=== PATIENT | male | born 1995 | race Caucasian/White ===

== ENCOUNTER 2022-09-16 05:36 | Emergency (ER) | payer OTHER ==
[2022-09-16] MEDS ORDERED: NA CHLORIDE 0.9% 1,000 ML ONE ×2 (06:10→09:23)
[2022-09-16] MEDS ORDERED: ONDANSETRON 4 MG/2 ML VIAL ONE (06:10)
[2022-09-16 06:32] LABS: Absolute Lymphocytes (CBC) 1.5 K/uL (0.7-4.9); Hematocrit 46.4 % (39.6-49.0); MCV 83.7 fL (80-100); MPV 9.6 fL (7.6-11.3); RBC Red Blood Cell Count 5.55 M/uL (4.33-5.43)
[2022-09-16 06:48] LABS: ALT/SGPT 669 U/L (16-61); AST/SGOT 553 U/L (15-37); Albumin 4.1 g/dL (3.4-5.0); Alkaline Phosphatase 157 U/L (45-117); BUN Blood Urea Nitrogen 11 mg/dL (7-18); Bicarbonate 28 mEq/L (21-32); Bilirubin Total 4.9 mg/dL (0.2-1.0); Glomerular Filtration Rate 92 ml/min (=/>90); Glucose Level 120 mg/dL (74-106); Potassium 3.4 mEq/L (3.5-5.1); Protein, Total 7.8 g/dL (6.4-8.2); Sodium Level 134 mEq/L (136-145)
[2022-09-16 06:49] LABS: Lipase > 5000 U/L (13-75)
--- NOTE | 2022-09-16 07:47 | RAD REPORT ---
EXAM DESCRIPTION: CT - Abdomen Pelvis W Contrast - 09/16/2022 7:07 am CLINICAL HISTORY: Abdominal pain COMPARISON: none. TECHNIQUE: Computed axial tomography of the abdomen pelvis was obtained. 100 cc Isovue-300 was admin istered intravenously. Oral contrast was not requested which limits evaluation of bowel and appendix All CT scans are performed using dose optimization technique as appropriate and may include automated exposure control or mA/KV adjustment according to patient size. FINDINGS: Mild enlargement of the pancreas. Small to moderate amount of ill-defined fluid surroundin g the pancreas extending into the left anterior pararenal space. Mildly thickened gallbladder wall. Small gallstones The liver, spleen, adrenals and kidneys are unremarkable Normal appendix No evidence of diverticulitis IMPRESSION: Mild to moderate pancreatitis. Cholelithiasis. Mildly thickened gallbladder wall may indicate cholecystitis
--- NOTE | 2022-09-16 07:48 | RAD REPORT ---
EXAM DESCRIPTION: US - Abdomen Exam Limited - 09/16/2022 7:04 am CLINICAL HISTORY: Abdominal pain. COMPARISON: None. FINDINGS: Multiple small gallstones. Gallbladder wall mildly thickened. The biliary tree is normal caliber. IMPRESSION: Cholelithiasis Mildly thickened gallbladder wall may indicate cholecystitis
[2022-09-16] MEDS ORDERED: POTASSIUM CL IV ONE (08:00)
[2022-09-16] MEDS ORDERED: NACHLORIDE 0.45% IV ONE (08:00)
--- NOTE | 2022-09-16 09:08 | EDPHYS ---
Physician Documentation [facility] Name: Chin Joy Age: 27 yrs Sex: Male : 1995 Arrival Date: 09/16/2022 Time: 05:36 Bed 7 Private MD: ED Physician Federico Suarez HPI: 09/16 05:49 This 27 yrs old Male presents to ER via Ambulatory with complaints of sp4 Abdominal Pain, Nausea, Low Back Pain. Historical: - Allergies: 05:49 No Known Allergies; rv - PMHx: 05:49 None; rv - PSHx: 05:49 None; rv - Immunization history:: Adult Immunizations up to date. - Social history:: Smoking status: Patient reports the use of cigarette tobacco products, VAPE. ROS: 06:56 Constitutional: Negative for fever, chills, and weight loss, Abdomen/GI: Negative for sp4 diarrhea, and constipation, positive for abdominal pain, upper abdominal pain, nausea vomiting Exam: 06:12 ECG was reviewed by the Attending Physician. Normal sinus rhythm at the rate of 63, EKG sp4 time 0 553, no ST elevation or depression. 06:56 Constitutional: This is a well developed, well nourished patient who is awake, alert, sp4 and in no acute distress. Head/Face: Normocephalic, atraumatic. Eyes: Pupils equal round and reactive to light, extra-ocular motions intact. Lids and lashes normal. Conjunctiva and sclera are not injected. Cornea within normal limits. Periorbital areas with no swelling, redness, or edema. ENT: Nares patent. No nasal discharge, no septal abnormalities noted. Tympanic membranes are normal and external auditory canals are clear. Oropharynx with no redness, swelling, or masses, exudates, or evidence of obstruction, uvula midline. Mucous membranes moist. Neck: Trachea midline, no thyromegaly or masses palpated, and no cervical lymphadenopathy. Supple, full range of motion without nuchal rigidity, or vertebral point tenderness. Chest/axilla: Normal chest wall appearance and motion. Nontender with no deformity. No lesions are appreciated. Cardiovascular: Regular rate and rhythm with a normal S1 and S2. No gallops, murmurs, or rubs. Normal PMI, no JVD. No pulse deficits. Respiratory: Lungs have equal breath sounds bilaterally, clear to auscultation and percussion. No rales, rhonchi or wheezes noted. No increased work of breathing, no retractions or nasal flaring. Abdomen/GI: Soft, with normal bowel sounds. No distension or tympany. No guarding or rebound. Positive upper abdominal tenderness particularly in epigastric area, negative rigidity Back: No spinal tenderness. No costovertebral tenderness. Skin: Warm, dry with normal turgor. Normal color with no rashes, no lesions, and no evidence of cellulitis. MS/ Extremity: Pulses equal, no cyanosis. Neurovascular intact. Full, normal range of motion. Neuro: Awake and alert, GCS 15, oriented to person, place, time, and situation. Cranial nerves II-XII grossly intact. Motor strength 5/5 in all extremities. Sensory grossly intact. Psych: Awake, alert, with orientation to person, place and time. Behavior, mood, and affect are within normal limits Vital Signs: 05:46 BP 147 / 92; Pulse 70; Resp 17; Temp 97.7; Pulse Ox 100% ; Weight 136 kg; Height 6 ft. rv 4 in. ; Pain 4/10; 06:51 BP 125 / 71; Pulse 57; Resp 15; Pulse Ox 100% on R/A; rv 05:46 Body Mass Index 36.50 (136.00 kg, 193.04 cm) rv 05:46 Pain Scale: Adult rv Murray Coma Score: 06:51 Eye Response: spontaneous(4). Motor Response: obeys commands(6). Verbal Response: rv oriented(5). Total: 15. MDM: 06:04 Patient medically screened. sp4 06:54 Differential diagnosis: Nonspecific abd pain, gastritis, cholecystitis, pancreatitis, sp4 appendicitis, diverticulitis, viral gastroenteritis, gastroenteritis. Data reviewed: vital signs, nurses notes, lab test result(s), amylase and lipase, electrolytes, hepatic panel, urinalysis, EKG, radiologic studies, CT scan, ultrasound. Consideration of Admission/Observation Patient was admitted/placed on observation. Escalation of care including admission/observation considered. Management of patient was discussed with the following: Hospitalist: elevation of lipase greater than 5000 and also elevated liver enzymes with clinical picture consistent with acute pancreatitis possible gallstone pancreatitis. Patient is awaiting on CT and ultrasound report. ED course: Patient will have to be signed out to the daytime provider follow-up: Necessary reports. 06:56 ED course: Patient will require admission to the hospital we will start patient on IV sp4 fluids and order n.p.o. as well. . 08:12 ED course: Patient signed out to me by operations supervisor 2nd shift Dr. Reed Patient is a 27-year-old male sp3 with epigastric pain with elevated LFTs now with CT scan of the abdomen and pelvis as well as ultrasound pending. Patient is currently pain-free and disposition will be based on final results with possible admission.. 09:06 ED course: CT demonstrates peripancreatic fluid consistent with pancreatitis as well as sp3 mild gallbladder wall thickening which is also confirmed by ultrasound. No stone is visualized in the bile ducts however multiple small stones are demonstrated on imaging in the gallbladder. Lipase levels greater than 5000, T. bili of 4.9, and elevated LFTs. Given all of these findings, choledocholithiasis is the most likely diagnosis. We do not have GI coverage here and therefore will have to transfer patient to [facility] the [facility]. Patient remains n.p.o. and Zosyn and more IV fluids have been ordered via IV. All this has been explained to the patient who is amenable to transfer and all questions have been answered. Pain remains at low levels and patient declines any pain medication at this time.. 09/16 05:58 Order name: Urinalysis w/ reflexes; Complete Time: 09:30 4 09/16 06:34 Order name: CBC with Automated Diff; Complete Time: 06:51 EDMS 09/16 06:50 Order name: Comprehensive Metabolic Panel; Complete Time: 06:51 EDMS 09/16 06:50 Order name: Lipase; Complete Time: 06:51 EDMS 09/16 05:58 Order name: Abdomen Limited 09/16 05:58 Order name: CT Abd/Pelvis - IV Contrast Only 4 09/16 07:09 Order name: Abdomen ; Complete Time: 08:57 EDMS 09/16 07:09 Order name: Abdomen Exam Limited; Complete Time: 08:57 EDMS 09/16 05:58 Order name: IV Saline Lock; Complete Time: 05:59 sp4 09/16 05:58 Order name: Labs collected and sent; Complete Time: 06:00 sp4 09/16 05:59 Order name: EKG - Nurse/Tech; Complete Time: 05:59 pf1 09/16 06:58 Order name: NPO; Complete Time: 06:58 sp4 EC:12 Rate is 63 beats/min. Rhythm is regular, Normal Sinus Rhythm. QRS [place] is Normal. [place] sp4 interval is normal. QRS interval is normal. QT interval is normal. T waves are Normal. No ST changes noted. Clinical impression: Normal ECG. Interpreted by me. Administered Medications: 06:03 Drug: NS 0.9% IV 1000 ml Route: IV; Rate: 1 bolus; Site: right antecubital; as6 06:03 Drug: Ondansetron IVP 4 mg Route: IVP; Site: right antecubital; as6 07:40 Drug: NS 0.45 % with KCl IV 20 mEq/L 1000 ml Route: IV; Rate: 125 ml/hr; Site: right ko1 antecubital; 09:15 Drug: NS 0.9% IV 1000 ml Route: IV; Rate: 1 bolus; Site: right antecubital; db 09:15 Drug: Piperacillin-Tazobactam IVPB 3.375 grams Route: IVPB; Infused Over: 60 mins; db Site: right antecubital; Disposition Summary: 09/16/22 09:08 Transfer Ordered Transfer Location: [facility] sp3 Reason: Higher level of care sp3 Condition: Stable sp3 Problem: new sp3 Symptoms: have worsened sp3 Accepting Physician: [facility] and hospitalist(09/16/22 12:22) ko1 Diagnosis - Choledocholithiasis, pancreatitis, abdominal pain sp3 Forms: - Medication Reconciliation Form sp3 - SBAR form sp3 Signatures: Dispatcher [employer] EDMS Kevin Rosas RN RN Federico Gomes MD MD sp3 Yvon Vines RN RN as6 Jayla Li RN RN ko1 Teena Jarrett RN RN db Keyona Ricardo RN RN pf1 Antonio Fuentes MD MD sp4 Corrections: (The following items were deleted from the chart) 06:58 06:58 Urinalysis+U.LAB.BRZ ordered. EDMS EDMS 08:15 06:58 CBC+H.LAB.BRZ ordered. EDMS EDMS 08:15 06:58 COMPREHENSIVE METABOLIC PANEL+C.LAB.BRZ ordered. EDMS EDMS 08:15 06:58 LIPASE+C.LAB.BRZ ordered. EDMS EDMS 12:22 09:08 TBD GI and hospitalist sp3 ko1
--- NOTE | 2022-09-16 09:08 | ER ---
Nurse's Notes [facility] Name: Chin Joy Age: 27 yrs Sex: Male : 1995 Arrival Date: 09/16/2022 Time: 05:36 Bed 7 Private MD: Diagnosis: Choledocholithiasis, pancreatitis, abdominal pain Presentation: 09/16 05:46 Chief complaint: Patient states: SUDDEN ONSET OF SHARP PAIN ON EPIGASTRIC AREA SINCE rv WEDNESDAY, WITH VOMITING, PAIN IMPROVE THE FF DAY, PAIN CAME BACK AFTER EATING IN THE AFTERNOON. PAIN IS WORSE TODAY, DESCRIBING IT TEARING, RAD TO BACK AREA. Coronavirus screen: At this time, the client does not indicate any symptoms associated with coronavirus-19. Ebola Screen: No symptoms or risks identified at this time. Initial Sepsis Screen: Does the patient meet any 2 criteria? No. Patient's initial sepsis screen is negative. Does the patient have a suspected source of infection? No. Patient's initial sepsis screen is negative. Risk Assessment: Do you want to hurt yourself or someone else? Patient reports no desire to harm self or others. Onset of symptoms was September 14, 2022. 05:46 Method Of Arrival: Ambulatory rv 05:46 Acuity: DESHAWN 3 rv Triage Assessment: 05:49 General: Appears comfortable, Behavior is calm, cooperative. Pain: Complains of pain in rv abdomen, UPPER. Pain: Pain radiates to back. Neuro: Level of Consciousness is awake, alert, obeys commands, Oriented to person, place, time, situation. Cardiovascular: Capillary refill < 3 seconds Patient's skin is warm and dry. Respiratory: Airway is patent Respiratory effort is even, unlabored. GI: Reports upper abdominal pain, nausea, vomiting. Derm: Skin is intact. Historical: - Allergies: 05:49 No Known Allergies; rv - PMHx: 05:49 None; rv - PSHx: 05:49 None; rv - Immunization history:: Adult Immunizations up to date. - Social history:: Smoking status: Patient reports the use of cigarette tobacco products, VAPE. Screenin:50 [facility] ED Fall Risk Assessment (Adult) History of falling in the last 3 months, rv including since admission No falls in past 3 months (0 pts) Confusion or Disorientation No (0 pts) Intoxicated or Sedated No (0 pts) Impaired Gait No (0 pts) Mobility Assist Device Used No (0 pt) Altered Elimination No (0 pt) Score/Fall Risk Level 0 - 2 = Low Risk Oriented to surroundings, Maintained a safe environment, Educated pt \T\ family on fall prevention, incl call for assistance when getting out of bed, Assessed \T\ reinforced patient's understanding of fall precautions, Provided non-skid footwear, Hourly rounding (assess needs \T\ fall precautionary measures) done, Used ambulatory aids as needed (educated on \T\ assisted with), Used gait belt as appropriate. Abuse screen: Denies threats or abuse. Denies injuries from another. Nutritional screening: No deficits noted. Tuberculosis screening: No symptoms or risk factors identified. Assessment: 05:51 GI: Bowel sounds present X 4 quads. Abd is soft and non tender X 4 quads. rv Vital Signs: 05:46 BP 147 / 92; Pulse 70; Resp 17; Temp 97.7; Pulse Ox 100% ; Weight 136 kg; Height 6 ft. rv 4 in. ; Pain 4/10; 06:51 BP 125 / 71; Pulse 57; Resp 15; Pulse Ox 100% on R/A; rv 05:46 Body Mass Index 36.50 (136.00 kg, 193.04 cm) rv 05:46 Pain Scale: Adult rv Beatriz Coma Score: 06:51 Eye Response: spontaneous(4). Motor Response: obeys commands(6). Verbal Response: rv oriented(5). Total: 15. ED Course: 05:39 Patient arrived in ED. jj6 05:40 Kevin Rosas, RN is Primary Nurse. rv 05:49 Triage completed. rv 05:49 Antonio Fuentes MD is Attending Physician. sp4 05:50 Arm band placed on right wrist. rv 05:50 Patient has correct armband on for positive identification. Client placed on continuous rv cardiac and pulse oximetry monitoring. NIBP monitoring applied. monitoring manager on. 05:50 Inserted saline lock: 20 gauge in right antecubital area, using aseptic technique. rv Blood collected. 07:02 Attending Physician role handed off by Antonio Fuentes MD sp3 07:02 Federico Suarez MD is Attending Physician. sp3 07:11 Abdomen In Process Unspecified. EDMS 07:11 Abdomen Exam Limited In Process Unspecified. EDMS 09:06 Urinalysis w/ reflexes Sent. ko1 09:11 initiated [facility]. bd 12:21 Provided Education on: transfer. ko1 12:21 No provider procedures requiring assistance completed. Patient transferred, IV remains ko1 in place. Administered Medications: 06:03 Drug: NS 0.9% IV 1000 ml Route: IV; Rate: 1 bolus; Site: right antecubital; as6 06:03 Drug: Ondansetron IVP 4 mg Route: IVP; Site: right antecubital; as6 07:40 Drug: NS 0.45 % with KCl IV 20 mEq/L 1000 ml Route: IV; Rate: 125 ml/hr; Site: right ko1 antecubital; 09:15 Drug: NS 0.9% IV 1000 ml Route: IV; Rate: 1 bolus; Site: right antecubital; db 09:15 Drug: Piperacillin-Tazobactam IVPB 3.375 grams Route: IVPB; Infused Over: 60 mins; db Site: right antecubital; Medication: 05:50 VIS not applicable for this client. rv Outcome: 09:08 ER care complete, transfer ordered by . sp3 12:21 Transferred by ground EMS [place]. to [facility], [facility], Transfer form ko1 completed. X-rays sent w/ patient. 12:22 Condition: stable ko1 12:22 Instructed on the need for transfer, Demonstrated understanding of instructions. 12:22 Patient left the ED. ko1 Signatures: Dispatcher [employer] EDMS Hannah Rose Ronaldo, RN RN rv Federico Suarez MD MD sp3 Katiana Hylton jj6 Yvon Vines RN RN as6 Jayla Li RN RN ko1 Teena Jarrett RN RN db Antonio Fuentes MD MD sp4
[2022-09-16 09:18] LABS: Specific Gravity > 1.030 (1.005-1.030); Urine Bilirubin 1+ (Negative); Urine Blood Negative (Negative); Urine Clarity Clear (Clear); Urine Color Yellow (Yellow); Urine Glucose NEGATIVE (Negative); Urine Protein NEGATIVE (Negative); Urine Urobilinogen Normal (Normal); Urine pH 5.5 (5.0-7.0)
[2022-09-16] MEDS ORDERED: NA CHLORIDE 0.9% 100 ML ONE (09:23)
[2022-09-16] MEDS ORDERED: PIPERACIL/TAZO 3.375 GM VIAL IV ONE (09:23)
[2022-09-16 12:29] VITALS: TEMP 97.7; O2SAT 100
[2022-09-16 12:30] VITALS: BP 125/71
--- NOTE | 2022-09-16 19:16 | EKG ---
Test Date: 2022-09-16 Test Time: 05:53:39 Truck Hopper: MANAN MEASUREMENT RESULTS: Intervals: Rate: 63 MT: 126 QRSD: 100 QT: 394 QTc: 403 [place]: P: 35 MT: 126 QRS: 60 T: 59 INTERPRETIVE STATEMENTS: Undetermined rhythm Otherwise normal ECG No previous ECG available for comparison Electronically Signed On 09-16-22 19:15:25 CDT by Vimal Crum
== END 2022-09-16 12:22 | disposition short-term general hospital (02) ==
LOC: ER 05:36
DX: K80.50 Calculus of bile duct without cholangitis or cholecystitis without obstruction (principal); K85.90 Acute pancreatitis without necrosis or infection, unspecified; Z72.0 Tobacco use
CPT/HCPCS: 93005; 85025; 36415; 81003; 83690; 80053; 74177; 76705; Q9967; J3480; J2543; J2405; J7030 ×2; 96374; 96375; 99285